=== PATIENT | female | born 1965 | race Caucasian/White ===

== ENCOUNTER 2024-01-10 07:46 | Outpatient (CLI) | payer OTHER, SELFPAY ==
--- NOTE | ~2024-01-10 | US_ITS ---
US abdomen limited DATE: 01/10/2024 08:10 INDICATION: Elevated liver enzymes TECHNIQUE: Real-time imaging of the liver, pancreas, gallbladder fossa COMPARISON: None FINDINGS: No hepatic or pancreatic space-occupying mass lesion is evident. Normal hepatopedal portal venous flow direction. The gallbladder is surgically absent. The common bile duct measures 3.9 mm, normal. IMPRESSION: Status post cholecystectomy Common bile duct measures 3.9 mm, normal Reviewed, dictated and finalized at [facility]. Reviewed, dictated and finalized at [facility].
== END 2024-01-10 07:47 ==
PROVIDERS: PCP Registered Nurse; Visit Provider Registered Nurse
DX: R74.8 Abnormal levels of other serum enzymes (principal)
CPT/HCPCS: 76705